=== PATIENT | male | born 1945 | race Caucasian/White ===

== ENCOUNTER 2019-01-27 14:03 | Emergency (ER) | payer OTHER ==
[~2019-01-27] VITALS: Ht 170.2 cm; Wt 73.9 kg
[2019-01-27 14:15] VITALS: Ht 170.2 cm; Wt 73.9 kg
[2019-01-27 15:46] VITALS: BP 138/70
== END 2019-01-27 15:46 | disposition home or self-care (01) ==
LOC: ED 14:03
DX: S00.451A Superficial foreign body of right ear, initial encounter (principal); Z85.118 Personal history of other malignant neoplasm of bronchus and lung; W45.8XXA Other foreign body or object entering through skin, initial encounter; Y93.89 Activity, other specified; Y92.89 Other specified places as the place of occurrence of the external cause; Y99.8 Other external cause status